=== PATIENT | female | born 1975 | race Caucasian/White ===

== ENCOUNTER 2023-01-26 13:29 | Outpatient (CLI) | payer MEDICAID, SELFPAY | END 2023-01-26 13:30 | disposition home or self-care (01) | LOC: AMB 01-27 05:52 | PROVIDERS: Visit Provider Family Medicine | DX: R20.2 Paresthesia of skin (principal); F41.9 Anxiety disorder, unspecified | CPT/HCPCS: A0425; A0429 ==

== ENCOUNTER 2023-02-11 08:24 | Emergency (ER) | payer MEDICAID, SELFPAY ==
[2023-02-11 08:33] VITALS: BP 173/102; PULSE 92; RESP 20; TEMP 36.7; O2SAT 99; BMI 34.7
--- NOTE | 2023-02-11 08:46 | ED.GENADULT ---
HPI - General Adult General Time Seen by Provider: 08:46 Date Seen: 02/11/23 Chief complaint: Headache/Migraine Stated complaint: migraine, high BP, heavy flow and cramps Time Seen by Provider: 02/11/23 08:45 Source: patient and RN notes reviewed Mode of arrival: ambulatory Limitations: no limitations History of Present Illness HPI narrative: Josue is a 47-year-old female coming in with elevated blood pressure, headache that is improved him and abdominal cramping with heavy menstrual flow. She has had her menstrual cycle starting 4 days ago. It is heavier than it has ever been, she is cramping, passing clots, quite heavy flow. She has never blood this heavy before. Her menstrual cycles are very regular. She is not sexually active. She woke this morning with significant headache, did drink a couple glasses of water which was improved. She sat down on the couch and took her blood pressure and was systolic 180s. She did take propranolol this morning. She has been out of lisinopril for about 3 days, her pharmacies been out. She states they did call her her lisinopril is in. We did review that if she has been off the lisinopril that this certainly could affect the blood pressure. She denies any chest pain, any difficulty breathing. Headache is significantly improved at this time per her report. She was diagnosed with hypertension at [facility] maybe about a month ago per report, was started lump lisinopril then. She was in the ER here with anxiety and was given some propranolol a few weeks ago. Related Data Home Medications Medication Instructions Recorded Confirmed lisinopril 10 mg tablet 10 mg PO DAILY 01/26/23 01/26/23 metoclopramide HCl 10 mg tablet 10 mg PO Q4-6H PRN 01/26/23 01/26/23 Previous Rx's Medication Instructions Recorded lisinopril 10 mg tablet 10 mg PO DAILY #30 tabs 01/26/23 propranolol 10 mg tablet 10 mg PO BID #60 tabs 01/26/23 Allergies Allergy/AdvReac Type Severity Reaction Status Date / Time No Known Drug Allergies Allergy Verified 01/26/23 13:55 Review of Systems Status of ROS: Reports: 6 or more systems reviewed and unremarkable except as noted in History and below PFSH PFSH Social History Smoking Status: Never smoker How often do you have a drink containing alcohol: 2-3 times a week How many standard drinks containing alcohol do you have on a typical day: 1 or 2 AUDIT-C Alcohol total score: 3 Non-prescribed substance use: denies use Exam Const: Vital Signs, click to edit/add: Vital Signs - 24 hr 02/11/23 08:33 02/11/23 08:54 02/11/23 11:13 Temperature 98.1 F Pulse Rate [Pulse Oximeter] 92 79 Respiratory Rate 20 17 Blood Pressure [Ri ght Upper Arm] 173/102 H 173/96 H Pulse Oximetry 99 97 97 Oxygen Delivery Me thod Room Air Documenting provider has reviewed patient's vital signs: yes Common normals: no apparent distress, oriented x3, no limitations, healthy appearing, alert and well nourished General appearance: cooperative, comfortable, well kempt, well developed and anxious Nutritional appearance: overweight HENMT: Common normals: normocephalic, head/scalp atraumatic, hearing grossly normal bilaterally, external ears normal, external nose normal, nasal mucous membranes and turbinates normal, moist oral mucous membranes and oropharynx normal Head and scalp: normocephalic and atraumatic Face and sinus: normal facial exam Nose: external nose normal and nasal mucous membranes and turbinates normal External ear: external ears normal Eye: Common normals: PERRL, EOMs intact bilaterally, conjunctivae normal and no scleral icterus Conjunctiva: conjunctiva(e) normal Pupil: PERRL Neck & C-Spine: Common normals: full ROM, no lymphadenopathy, supple, no JVD and thyroid normal Thyroid: thyroid normal Resp: Common normals: normal respiratory effort, no retractions, no use of accessory muscles and clear to auscultation bilaterally Auscultation: clear to auscultation bilaterally Cardio: Common normals: no JVD, regular rate, regular rhythm, S1 normal heart sound, S2 normal heart sound, no gallops, no clicks and no murmurs Rate: regular rate Rhythm: regular rhythm Heart sounds: S1 normal and S2 normal GI: Common normals: Normal to inspection, nondistended, normoactive bowel sounds present, soft to palpation, non-tender, no hepatosplenomegaly, no masses and no bruits Palpation: soft and no hepatosplenomegaly Extremity: Common normals: normal to inspection, full ROM, no calf tenderness and no pedal edema Neuro: Osmin Coma Scale: document GCS findings Brooten coma scale eye opening: Spontaneous (4) Osmin coma scale verbal response: Orientated (5) Osmin coma scale motor response: Obey commands (6) Osmin coma scale total score: 15 Common normals: oriented x3, CN's II-XII intact bilaterally, moves all extremities, no focal motor deficits, no sensory deficits noted and gait normal Sensorium/orientation: alert Psych: Appearance: well kempt Course Course Hospital Course: This is a patient with menstrual irregularities heavy menstrual bleeding, complaint of headache that is improved upon arrival, underlying hypertension who was been off her lisinopril for 3 days. Reviewed that I would anticipate her blood pressure to be uncontrolled with nonuse of the lisinopril for 3 days. We will get her a dose of her oral lisinopril here this morning. We discussed laboratory workup and evaluation. She would like to proceed with labs, ultrasound of the uterus to ensure no developing pathology. We did discuss menstrual irregularities that can develop in women as we start to become Krissy menopausal. There certainly could be underlying things like fibroids that could be developing which could make menstrual flow have year. She states she is established with the clinic 5 daily. Thus cup of she will be able to follow-up. Reevaluation(s) Time of Reevaluation #1: 11:21 Reevaluation #1: Have reviewed that there is a small fibroid on the ultrasound as well as an ovarian cyst that should be followed up with repeat ultrasound in 6-12 weeks. She can do this with her primary provider or the primary provider can refer her to OB Gyne. We discussed that she may expect development of heavy menstrual cycles with a uterine fibroid. She still reports a little bit of cramping in I reviewed with her that she might need some Tylenol and ibuprofen for this. The ovarian cyst could be causative of some pain as well. She had episode of urinary incontinence here, stated she did not feel like she had to go at all. Have offered to collect urinalysis, did discuss head CT imaging. She has no perineal anesthesia, did document normal sensation. She states she had a head CT probably within the last month when she was in [facility]. Her headache is improved, does not endorse any chronic ongoing headaches. She states she is feeling some heartburn type symptoms right now. IA am going to recommend that we do a repeat troponin, will try to give her some IV Protonix and Maalox, will do a lab add on for D-dimer. Her blood pressure is still in the 170 range but again she has been off lisinopril 3 days. She states she is just not feeling well, does not feel right. Time of Reevaluation #2: 12:37 Reevaluation #2: Have reviewed that her D-dimer and 2nd troponin are completely normal. She thinks that she can leave a urinalysis, will allow her to go in I can follow-up on that. Blood pressure when I was talking to her a was systolic 156, thus improved. Vital Signs Vital signs: Initial Vital Signs Temperature 98.1 F 02/11/23 08:33 Temperature Source Temporal Artery Scan 02/11/23 08:33 Pulse Rate 92 02/11/23 08:33 Respiratory Rate 20 02/11/23 08:33 Blood Pressure 173/102 H 02/11/23 08:33 Blood Pressure Mean 125 H 02/11/23 08:33 Blood Pressure Position Supine 02/11/23 08:33 Pulse Oximetry 99 02/11/23 08:33 Oxygen Delivery Method Room Air 02/11/23 08:33 Vital Signs Temperature 98.1 F 02/11/23 08:33 Pulse Rate 92 02/11/23 08:33 Respiratory Rate 20 02/11/23 08:33 Blood Pressure 173/102 H 02/11/23 08:33 Pulse Oximetry 99 02/11/23 08:33 Oxygen Delivery Method Room Air 02/11/23 08:33 Temperature 98.1 F 02/11/23 08:33 Pulse Rate 79 02/11/23 11:13 Respiratory Rate 17 02/11/23 11:13 Blood Pressure 173/96 H 02/11/23 11:13 Pulse Oximetry 97 02/11/23 11:13 Oxygen Delivery Method Room Air 02/11/23 08:33 Medical Decision Making Lab Data Labs: Lab Results 02/11/23 02/11/23 02/11/23 Range/Units 09:19 11:23 11:35 WBC 7.46 (4.50-11.00) K/uL RBC 3.73 L (4.00-5.20) m/uL Hgb 11.9 L (12.0-16.0) gm/dL Hct 34.1 (33.0-51.0) % MCV 91 (80-100) fL MCH 32 (26-34) pg MCHC 35 (32-36) gm/dL RDW Coeff of Martina 13.4 (11.5-15.5) % Plt Count 323 (140-440) K/uL Neut % (Auto) 73.1 H (42.0-72.0) % Lymph % (Auto) 16.2 L (20-44) % [place] % (Auto) 6.2 (0.0-11.0) % Eos % (Auto) 3.9 (0.0-7.0) % Baso % (Auto) 0.5 (0.0-3.0) % Neut # (Auto) 5.50 (1.7-7.0) K/uL Lymph # (Auto) 1.20 (0.90-2.90) K/uL [place] # (Auto) 0.50 (0.00-0.90) K/UL Eos # (Auto) 0.29 (0.00-0.50) K/uL Baso # (Auto) 0.04 (0.00-0.30) K/uL D-Dimer Quant (PE/DVT) < 0.27 (0.00-0.50) ug/ml Sodium 138 (135-149) mmol/L Potassium 4.1 (3.6-5.1) mmol/L Chloride 103 (96-114) mmol/L Carbon Dioxide 23 (20-32) mmol/L BUN 11 (5-24) mg/dL Creatinine 0.8 (0.5-1.5) mg/dL Estimated Creat Clear 82.26 Estimated GFR 92 ml/min Glucose 136 H (60-115) mg/dL Lactate 2.2 H (0.5-1.9) mmol/L Calcium 9.3 (8.4-10.6) mg/dL Total Bilirubin 0.5 (0.1-1.5) mg/dL AST 35 (12-35) U/L ALT 36 H (4-35) U/L Alkaline Phosphatase 55 (40-150) U/L Total Protein 7.4 (6.0-8.3) g/dL Albumin 4.4 (3.3-5.0) g/dL Lab Acknowledgement Test Added POC Troponin I 0.00 L 0.00 L (0.01-0.04) ng/ml Imaging Data US pelvis: Attestation: I have reviewed the pertinent imaging results. Radiologist's impression: Patient: KELLY VALVERDE Facility:?[facility] Patient ID:?[id number] Site Patient ID:?[id number]. Site :?[id number] Study:?US Pelvis TV-02/11/2023 9:48:53 AM Ordering Physician:?Kit Peoples Final Report: INDICATION: Pelvic pain. TECHNIQUE: Ultrasound pelvis transabdominal and transvaginal for better assessment or to better visualize the endometrium. COMPARISON: None. FINDINGS: Uterus: 9.4 x 4.4 x 5.7 cm. 2.8 x 2.0 x 2.5 centimeter fundal subserosal fibroid. No other mass. Endometrium: Transvaginal imaging was performed to better evaluate the endometrium. Endometrial thickness measures 10.3 mm. No sign of endometrial mass or fluid. Right ovary measures 3.3 x 1.7 x 2.0 cm and left ovary measures 5.2 x 2.9 x 4.9 cm. 3.9 x 2.3 x 3.7 centimeter s left ovarian cyst with a single thin septation. Normal arterial and venous blood flow is demonstrated in both ovaries. Cul-de-sac: No significant free fluid. IMPRESSION: 1. Mildly complex 3.9 centimeter left ovarian cyst with a single thin septation. Recommend 612 week follow-up ultrasound.. 2. 2.8 x 2.0 x 2.5 centimeter subserosal fibroid arising from the uterine fundus Dictated by Storm Duarte MD @ 02/11/2023 10:14:55 AM (Electronic Signature) ECG Data Attestation: I personally reviewed and interpreted this ECG as follows: (Normal sinus rhythm, 76 beats per minute. No acute ischemia. QT corrected 445 milliseconds.) Prior ECG tracings: not available for review Discharge Plan Discharge Clinical Impression: Menorrhagia, Fibroid, uterine, Ovarian cyst, Hypertension Patient Disposition: Home, Self-Care Condition: Stable Instructions: Ovarian Cyst (ED), Heart Healthy Diet (ED), Menorrhagia (ED), DASH Eating Plan (ED), Hypertension (ED) Additional Instructions: Need to schedule follow-up appointment with your primary care provider within the next couple of weeks. You will need a repeat ultrasound for the ovarian cyst, recommended in 6-12 weeks. Your primary care provider can follow up on this or refer you to OB Gyne depending on their comfort level. If you have increasing abdominal pain that is not controlled with Tylenol and ibuprofen, developed abdominal pain with fever vomiting, do recommend re-evaluation. Exercise, weight loss are he components of managing high blood pressure, dietary factors with sodium intake are also very important. Handouts are given to you on some nutritional information, talk to your primary care provider about possible nutrition referral. We will contact you if there is any concerning changes on the urinalysis. If you have any further urinary incontinence episodes like you had today, do recommend further evaluation. Please pickle maker your lisinopril, remember that you did get a dose here today, next dose is due tomorrow. Activity Level: Activity as Tolerated Discharge Diet: Heart Healthy (2 gm sodium, low fat) Prescriptions: No Action lisinopril 10 mg tablet 10 mg PO DAILY metoclopramide HCl 10 mg tablet 10 mg PO Q4-6H PRN lisinopril 10 mg tablet 10 mg PO DAILY Qty: 30 2RF propranolol 10 mg tablet 10 mg PO BID Qty: 60 2RF Follow Up/Referrals: Provider,Not a Local [Primary Care Provider] - Stand Alone Forms: [employer] Info Instructions
[2023-02-11 08:54] VITALS: O2SAT 97
--- NOTE | 2023-02-11 09:04 | CRLHL7_ITS ---
For Patients: As a result of the Century Cures Act, medical imaging exams and procedure reports are released immediately into your electronic medical record. You may view this report before your referring provider. If you have questions, please contact your health care provider. INDICATION: Pelvic pain. TECHNIQUE: Ultrasound pelvis transabdominal and transvaginal for better assessment or to better visualize the endometrium. COMPARISON: None. FINDINGS: Uterus: 9.4 x 4.4 x 5.7 cm. 2.8 x 2.0 x 2.5 centimeter fundal subserosal fibroid. No other mass. Endometrium: Transvaginal imaging was performed to better evaluate the endometrium. Endometrial thickness measures 10.3 mm. No sign of endometrial mass or fluid. Right ovary measures 3.3 x 1.7 x 2.0 cm and left ovary measures 5.2 x 2.9 x 4.9 cm. 3.9 x 2.3 x 3.7 centimeter s left ovarian cyst with a single thin septation. Normal arterial and venous blood flow is demonstrated in both ovaries. Cul-de-sac: No significant free fluid. IMPRESSION: 1. Mildly complex 3.9 centimeter left ovarian cyst with a single thin septation. Recommend 612 week follow-up ultrasound.. 2. 2.8 x 2.0 x 2.5 centimeter subserosal fibroid arising from the uterine fundus Dictated by Storm Duarte MD @ 02/11/2023 10:14:55 AM (Electronically Signed)
[2023-02-11] MEDS: KETOROLAC 15 MG/ML inj IVP (09:25)
[2023-02-11] MEDS: 0.9 % SODIUM CHLORIDE 500 ML 500 ML IV (09:25)
[2023-02-11 09:30] LABS: Basophils Absolute Auto 0.04 K/uL (0.00-0.30); Basophils Percent Auto 0.5 % (0.0-3.0); Eosinophils Absolute Auto 0.29 K/uL (0.00-0.50); Eosinophils Percent Auto 3.9 % (0.0-7.0); Hematocrit 34.1 % (33.0-51.0); Hemoglobin* 11.9 gm/dL (12.0-16.0); Immature Granulocytes Abs Auto 0.01 K/uL (0.00-0.30); Immature Granulocytes Pct Auto 0.1 %; Lactate* 2.2 mmol/L (0.5-1.9); Lymphocytes Percent Auto 16.2 % (20-44); Mean Corpuscular HGB Conc 35 gm/dL (32-36); Mean Corpuscular Hemoglobin 32 pg (26-34); Mean Corpuscular Volume 91 fL (80-100); Monocytes Percent Auto 6.2 % (0.0-11.0); Neutrophils Percent Auto 73.1 % (42.0-72.0); Platelet Count* 323 K/uL (140-440); RDW Coefficient of Variation % 13.4 % (11.5-15.5); Red Blood Count 3.73 m/uL (4.00-5.20); White Blood Count* 7.46 K/uL (4.50-11.00)
[2023-02-11 09:38] LABS: Slide Review Reflex No
[2023-02-11 09:50] LABS: Albumin* 4.4 g/dL (3.3-5.0); Chloride* 103 mmol/L (96-114)
[2023-02-11 09:51] LABS: Potassium* 4.1 mmol/L (3.6-5.1); Sodium* 138 mmol/L (135-149)
[2023-02-11 09:53] LABS: Alkaline Phosphatase* 55 U/L (40-150); Aspartate Amino Transferase* 35 U/L (12-35); Bilirubin Total* 0.5 mg/dL (0.1-1.5); Blood Urea Nitrogen* 11 mg/dL (5-24); Carbon Dioxide* 23 mmol/L (20-32); Creatinine* 0.8 mg/dL (0.5-1.5); Est. Creatinine Clearance* 82.26; Estimated Glomerular Filt Rate 92 ml/min; Total Protein* 7.4 g/dL (6.0-8.3)
[2023-02-11 09:54] LABS: Alanine Aminotransferase* 36 U/L (4-35); Calcium* 9.3 mg/dL (8.4-10.6); Glucose* 136 mg/dL (60-115)
[2023-02-11] MEDS: lisinopriL 10 MG TABLET PO (10:14)
[2023-02-11 11:13] VITALS: BP 173/96; PULSE 79; RESP 17; O2SAT 97
[2023-02-11 12:15] LABS: D Dimer Quantitative* < 0.27 ug/ml (0.00-0.50)
[2023-02-11] MEDS: PANTOPRAZOLE SODIUM 40 MG INJ IVP (12:48)
[2023-02-11] MEDS: MAG HYDROX/ALUMINUM HYD/SIMETH 30 ML ORAL.SUSP 15 ML PO (12:48)
== END 2023-02-11 13:22 | disposition home or self-care (01) ==
PROVIDERS: Emergency Provider Family Medicine
DX: N92.0 Excessive and frequent menstruation with regular cycle (principal); D25.9 Leiomyoma of uterus, unspecified; N83.209 Unspecified ovarian cyst, unspecified side; I10 Essential (primary) hypertension
CPT/HCPCS: 36415; 76830; 80053; 81001; 83605; 84484; 85025; 85379; 93005; 94761; 96361; 96374; 96375; 99284; 99285; A9270; C9113; J1885; J7120